=== PATIENT | male | born 1985 | race Hispanic/Latino ===

== ENCOUNTER 2017-11-09 11:11 | Emergency (ER) | payer BC ==
[2017-11-09] MEDS ORDERED: KETOROLAC TROMETHAMINE 15MG/ML ONE ×2 (11:47→13:32)
[2017-11-09] MEDS ORDERED: ONDANSETRON HCL MDV 20ML 2 MG/ML VIAL ONE (11:47)
[2017-11-09] MEDS ORDERED: TAMSULOSIN HCL 0.4 MG CAP.ER.24H ONE (11:47)
[2017-11-09 11:54] LABS: BASOPHILS % (AUTO) 0.6 % (0.0-5.0); EOSINOPHILS % (AUTO) 0.6 % (0.0-8.0); HEMATOCRIT 50.7 % (42-54); LYMPHOCYTES % (AUTO) 23.4 % (21.0-51.0); MEAN CORPUSCULAR HEMOGLOBIN 32.5 pg (27.0-33.0); MEAN CORPUSCULAR HGB CONC 34.5 g/dL (32.0-36.0); MEAN CORPUSCULAR VOLUME 94.4 fL (79-99); MONOCYTES % (AUTO) 7.1 % (3.0-13.0); NEUTROPHILS % (AUTO) 68.3 % (40.0-77.0); PLATELET COUNT (AUTO) 312 K/uL (130-400); RED BLOOD CELL COUNT(AUTO) 5.38 MIL/uL (4.50-6.20); WHITE BLOOD COUNT (AUTO) 8.1 K/uL (4.8-10.8)
[2017-11-09 12:03] LABS: CREATININE 1.5 mg/dL (0.5-1.5)
[2017-11-09 12:07] LABS: ALBUMIN 4.7 g/dL (3.5-5.0); BILIRUBIN,TOTAL 0.8 mg/dL (0.2-1.0)
[2017-11-09 13:25] LABS: APPEARANCE,URINE Cloudy (CLEAR); BILIRUBIN,URINE Negative (NEGATIVE); COLOR,URINE Dark Yellow (YELLOW); GLUCOSE, URINE (UA) Negative (NEGATIVE); KETONES,URINE 40 mg/dL (NEGATIVE); LEUKOCYTE ESTERASE ,URINE Negative (NEGATIVE); NITRATE,URINE Negative (NEGATIVE); OCCULT BLOOD,URINE Negative (NEGATIVE); PH,URINE 5.5 (5.0-8.0); PROTEIN,URINE Negative (NEGATIVE)
[2017-11-09 13:44] LABS: BACTERIA,URINE Few /HPF (None Seen); RBC,URINE 0-1 /HPF (0-1); SQUAMOUS EPITHELIAL CELL,UR 0-2 /HPF (0-2); WBC,URINE 0-1 /HPF (0-1)
== END 2017-11-09 14:35 | disposition home or self-care (01) ==
LOC: EDH 11:11
DX: R10.9 Unspecified abdominal pain (principal); R11.0 Nausea; Z72.0 Tobacco use
CPT/HCPCS: 36415; 74176; 80053; 81001; 83690; 85025; 96361; 96374; 96375; 96376; 99285; J1885 ×2